=== PATIENT | male | born 1980 | race Caucasian/White ===

== ENCOUNTER 2016-10-30 13:37 | Emergency (ER) | payer SELFPAY ==
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
[2016-10-30 13:58] VITALS: BP 143/87
== END 2016-10-30 13:58 | disposition home or self-care (01) ==
LOC: ED 13:37
DX: S16.1XXA Strain of muscle, fascia and tendon at neck level, initial encounter (principal); V57.5XXA Driver of pick-up truck or van injured in collision with fixed or stationary object in traffic accident, initial encounter; Y92.414 Local residential or business street as the place of occurrence of the external cause; Y93.9 Activity, unspecified; Y99.9 Unspecified external cause status
CPT/HCPCS: 99283

== ENCOUNTER 2018-12-22 17:59 | Emergency (ER) | payer OTHER ==
--- NOTE | 2018-12-22 18:06 | ED Physician Documentation ---
General Adult - HISTORIAN Historian: patient - HPI Stated Complaint: right elbow pain Chief Complaint: Upper Extremity Problem Onset: other (2 months ) Timing: still present Severity: mild Further Comments: yes (He states his elbow doesnt currently hurt . However after he is working or doing activity he has increased pain in the elbow. Denies any injury. He has tried OTC meds with no relief.) - ROS CONST: no problems EYES/ENT: none CVS/RESP: none GI/: none MS/SKIN/LYMPH: none NEURO/PSYCH: denies: headache - PAST HX Past History: none Other History: none Surgeries/Procedures: none Immunizations: UTD Allergies/Adverse Reactions: Allergies Allergy/AdvReac Type Severity Reaction Status Date / Time Penicillins Allergy Unknown Verified 12/22/18 18:26 Home Medications: Ambulatory Orders Medication Instructions Recorded NK 12/22/18 - SOCIAL HX Smoking History: non-smoker Alcohol Use: none Drug Use: none - FAMILY HX Family History: No - VITAL SIGNS Vital Signs: Vital Signs Temp Pulse Resp BP Pulse Ox 143/87 10/30/16 13:58 - REVIEWED ASSESSMENTS Nursing Assessment Reviewed: Yes Vitals Reviewed: Yes Progress - Progress Progress: 1905: discussed results and plan. Pt and spouse are agreeable DG ED Results Lab/Radiology - Radiology Radiology Impressions: Right elbow, 2 views HISTORY Injury, pain FINDINGS The osseous, joint and soft tissue structures are normal. IMPRESSION Normal. Electronically signed on Dec 22, 2018 6:50:57 PM BLEACH CHLORINATOR by: Johnny Levi General Adult Physical Exam - PHYSICAL EXAM GENERAL APPEARANCE: no distress EENT: eye inspection normal, no signs of dehydration NECK: normal inspection RESPIRATORY: no resp distress, chest non-tender, breath sounds normal CVS: reg rate & rhythm, heart sounds normal ABDOMEN: soft, no distension BACK: normal inspection SKIN: warm/dry, normal color EXTREMITIES: non-tender, other (right elbow pain with full extension -- pulses + FROM + sensation + cap refill + ) NEURO: oriented X3 Discharge Clincal Impression: Right elbow pain Referrals: Primary Doctor,No [Primary Care Provider] - 2 Days Comments: 1. Cyclobenzaprine 10 mg take 1 by mouth every 12 hours as needed for muscle pain 2. Medrol dose pack - as directed 3. Continue OTC meds as directed for pain 4. Follow up with PCP in 2- 4days for possible MRI 5. Return to ER for any concerns Disposition: 01 HOME, SELF-CARE Decision to Admit: NO Date of Decison to Admit: 12/22/18 Decision Time: 19:15
[2018-12-22] MEDS ORDERED: ORPHENADRINE CITRATE 60 MG/2 ML ML IM ONE (19:07)
[2018-12-22 19:21] VITALS: BP 132/78
--- NOTE | 2018-12-23 05:35 | Diagnostic Imaging Report ---
DARINEL PHILLIPS [facility] [id number] [facility] [address] [place], [place]. [address] Report Submission Date: Dec 22, 2018 6:50:57 PM [employer] Patient Study Name: OCTAVIO DONG Date: Dec 22, 2018 6:17:18 PM [employer] Modality Type: DX Gender: M Description: ELBOW 2 VIEWS : 82 Institution: [facility] Physician: DARINEL PHILLIPS Right elbow, 2 views HISTORY Injury, pain FINDINGS The osseous, joint and soft tissue structures are normal. IMPRESSION Normal. Electronically signed on Dec 22, 2018 6:50:57 PM [employer]IVER by: Johnny GREEN
== END 2018-12-22 19:20 | disposition home or self-care (01) ==
LOC: ED 17:59
DX: M25.521 Pain in right elbow (principal)
CPT/HCPCS: 73070; 96372; 99283; J2360